=== PATIENT | female | born 1965 | race Caucasian/White ===

== ENCOUNTER 2017-02-09 13:33 | Emergency (ER) | payer OTHER, MEDICAID ==
--- NOTE | 2017-02-09 13:51 | ED Physician Chart ---
Chief Complaint/HPI - Patient Information Date Seen:: 02/09/17 Time Seen:: 13:45 Chief Complaint:: Abdominal pain since about 11 am today. History of Present Illness:: c/o acute onset of L flank pain with radiation to L groin since about 11 am today. Pain is characterized as sharp and constant. No known relieving or aggravating factors. No fever. Pt had transient N/V with vomitus consists of gastric content. No hematemesis. Last BM at about 8 am today, normal in color/ consistency. No hematochezia or melena. Pt noticed blood in urine. No dysuria, urgency, or frequency. Allergies:: Allergies Allergy/AdvReac Type Severity Reaction Status Date / Time No Known Allergies Allergy Verified 02/09/17 13:39 Vitals:: Vital Signs - 8 hr 02/09/17 13:33 Temp 97.4 F HR 67 RR 16 BP 139/70 O2 Sat % 98 Historian:: Patient Family MD/PCP:: Dr. Hercules LMP:: Hysterectomy about 9 y/a. Review:: Nurse's Note Reviewed Review of Systems - Review of Systems General/Constitutional: No fever, No chills, Weight loss (Pt has been on a new diet for wt control), No weakness, No edema, No loss of appetite Skin: No skin lesions, No rash, No bruising Head: No headache, No light-headedness Eyes: No loss of vision, No pain, No diplopia ENT: No earache, No nasal drainage, No sore throat Neck: No neck pain, No swelling, No thyromegaly, No stiffness, No mass noted Cardio Vascular: No chest pain, No palpitations, No edema Pulmonary: No SOB, No cough, No wheezing GI: Nausea, Vomiting, No diarrhea, Pain, No melena, No hematochezia, No constipation, No hematemesis G/U: Dysuria, No frequency, Hematuria Striper Spray Gun: No vaginal discharge, No abnormal vaginal bleed Musculoskeletal: No bone or joint pain, No back pain, No muscle pain Endocrine: No polyuria, No polydipsia Psychiatric: Prior psych history, No depression, No anxiety Hematopoietic: No bruising, No lymphadenopathy Allergic/Immuno: No urticaria, No angioedema Neurological: No syncope, No focal symptoms, No weakness, No paresthesia, No headache, No confusion Past Medical History - Past Medical History Past Medical History: Other (chronic urinary incontinence due to pelvic injury about 29 y/a.) Family History: Diabetes Melitus (mother) Social History: Non Smoker, No Alcohol, Illicit Drug Use (marijuana. Pt has been informed about health risks associated with chronic illicit drug use and has been advised to quit. Pt acknowledges understanding.), , Other ( lives with her significant others.) Employment:: Unemployed. Surgical History: Hysterectomy (about 29 y/a.), Hernia (R inguinal hernia repair about 25 y/a.), other (Urethral diverticulum resection and urinary bladder lift about a year ago.) Psychiatricy History: Other (PTSD) Medication: Reviewed Family Medical History - Family Member Mother History Unknown: Yes Physical Exam - Physical Examination General/Constitutional: Awake, Well-developed, well-nourished, Alert, GCS 15, Non-toxic appearing, Ambulatory Other Gen/Cons comments:: Breathes comfortably, speaks clearly, but is in moderate to severe distress due to L flank pain. Head: Atraumatic Eyes: Lids, conjuctiva normal, PERRL, EOMI Skin: Nl inspection, No rash, No skin lesions, No ecchymosis, Well hydrated, No lymphadenopathy ENMT: External ears, nose nl, Nasal exam nl, Lips, teeth, gums nl, Oropharynx nl Neck: Nontender, Full ROM w/o pain, No nuchal rigidity, No mass, No stridor Respiratory: Nl effort/Exclusion, Clear to Auscultation, No Wheeze/Rhonchi/Rales Cardio Vascular: RRR, No murmur, gallop, rubs GI: No organomegaly, No hernia, Normal BS's, Nondistended, No mass/bruits, No McBurney tenderness Other GI comments:: Obese but soft. Tenderness in L flank. No ecchymosis. No R/G. : No CVA tenderness Extremities: No edema Neuro/Psych: Alert/oriented (oriented x 3.), Judgement/insight normal, Normal gait, No focal deficits Misc: normal gait, Normal back, No paraspinal tenderness Labs/Radiology/EKG Results - Lab Results Results: Laboratory Tests 02/09/17 02/09/17 02/09/17 14:06 14:06 14:06 WBC 10.7 RBC 5.45 H Hgb 15.6 H Hct 47.1 H MCV 86.5 MCH 28.5 MCHC Differential 33.0 RDW 14.0 Plt Count 242 MPV 8.8 Neutrophils % 77.2 Lymphocytes % 18.2 L Monocytes % 3.7 Eosinophils % 0.4 Basophils % 0.5 PT 9.9 INR 0.95 PTT (Actin FS) 26.5 Sodium 137 Potassium 3.8 Chloride 106 Carbon Dioxide 22.3 Anion Gap 12.5 BUN 14 Creatinine 0.5 L Est GFR ( Amer) > 60.0 Est GFR (Non-Af Amer) > 60.0 BUN/Creatinine Ratio 28.0 Glucose 124 H Calcium 10.4 H Total Bilirubin 0.5 AST 16 ALT 21 Alkaline Phosphatase 71 Total Protein 7.1 Albumin 4.5 Globulin 2.6 Albumin/Globulin Ratio 1.7 Urine Source Urine Color Urine Clarity Urine pH Ur Specific [place] Urine Protein Urine Glucose (UA) Urine Ketones Urine Blood Urine Nitrate Urine Bilirubin Urine Urobilinogen Ur Leukocyte Esterase Urine RBC Urine WBC Ur Epithelial Cells Urine Bacteria 02/09/17 15:15 WBC RBC Hgb Hct MCV MCH MCHC Differential RDW Plt Count MPV Neutrophils % Lymphocytes % Monocytes % Eosinophils % Basophils % PT INR PTT (Actin FS) Sodium Potassium Chloride Carbon Dioxide Anion Gap BUN Creatinine Est GFR ( Amer) Est GFR (Non-Af Amer) BUN/Creatinine Ratio Glucose Calcium Total Bilirubin AST ALT Alkaline Phosphatase Total Protein Albumin Globulin Albumin/Globulin Ratio Urine Source CLEAN C Urine Color BROWN Urine Clarity HAZY Urine pH 6.0 Ur Specific [place] 1.030 Urine Protein 100 H Urine Glucose (UA) NEGATIVE Urine Ketones 40 H Urine Blood LARGE H Urine Nitrate NEGATIVE Urine Bilirubin SMALL H Urine Urobilinogen 0.2 Ur Leukocyte Esterase NEGATIVE Urine RBC >100 H Urine WBC 2-5 Ur Epithelial Cells FEW Urine Bacteria MODERATE - Radiology Results Results: Abdominal and pelvic CT without contrast: Mild left hydro, 2 mm left UPJ stone, no free fluid, no diverticulitis. Offical report per Dr. Braeden Santana, radiologist. ED Septic Shock - . Is Septic Shock (SBP<90, OR Lactate>4 mmol\L) present?: No - <6hrs of presentation: Vital Signs: Vital Signs - 8 hr 02/09/17 13:33 Temp 97.4 F HR 67 RR 16 BP 139/70 O2 Sat % 98 Reassessment (Disposition) - Reassessment Reassessment:: [id number] Pt has been repeatedly evaluated. Pt feels much better. Left flank abdominal pain has subsided. CT report just became available. Lab and CT findings have been reviewed with pt. Pt requests to go home now and does not want further observation/management in hospital. Aftercare instructions have been given. Reassessment Condition:: Improved - Diagnosis Diagnosis:: L flank pain due to urolithiasis, stable and improved. Bacteriuria - Aftercare/Follow up Instructions Aftercare/Follow-Up Instructions:: Refer to Discharge Instructions Notes:: Increase oral fluid. Pt has been instructed to strain all urines. If renal stone is isolated, save and bring to lab for chemical analysis. Abdominal pain instructions given. Bedrest today. F/U with PCP Dr. Hercules in one day for recheck with repeat lab studies: CMP, urinalysis, and consideration for repeat abdominal sonogram. Return to ER immediately if condition worsens or if any further questions/problems. Medication Prescribed:: Bactrim DS one tab po q12h for 7 days. D-14 R-0 - Patient Disposition Discharge/Transfer:: Home Time:: 16:00 Condition at Disposition:: Stable, Improved
[2017-02-09 14:16] LABS: % BASOPHILS 0.5 % (0.0-2.0); % EOSINOPHILS 0.4 % (0.0-5.0); % LYMPHOCYTES 18.2 % (20.0-50.0); % MONOCYTES 3.7 % (2.0-10.0); % NEUTROPHILS 77.2 % (40.0-80.0); HEMATOCRIT 47.1 % (35.0-45.0); HEMOGLOBIN 15.6 gm/dL (11.7-15.5); MEAN CELL VOLUME 86.5 fl (81-100); MEAN CORPUSCULAR HEMOGLOBIN 28.5 pg (27.0-31.0); MEAN PLATELET VOLUME 8.8 fl; NEUTROPHILE ABSOLUTE 8.3 Th/cmm (1.8-8.0); PLATELET COUNT 242 Th/cmm (150-400); RED BLOOD COUNT 5.45 Mil/cmm (3.80-5.10); WHITE BLOOD COUNT 10.7 Th/cmm (4.8-10.8)
[2017-02-09 14:27] LABS: INR 0.95 (0.5-1.4); PROTHROMBIN TIME (TEST) 9.9 SECONDS (9.5-11.5)
[2017-02-09 14:31] LABS: ALB/GLOB RATIO 1.7 (1.0-1.8); ALKALINE PHOSPHATASE 71 U/L (34-104); ANION GAP 12.5 (7.0-16.0); BILIRUBIN,TOTAL 0.5 mg/dL (0.3-1.0); BUN - UREA NITROGEN 14 mg/dL (7-25); CALCIUM SERUM 10.4 mg/dL (8.6-10.3); CARBON DIOXIDE 22.3 mEq/L (21.0-31.0); CHLORIDE 106 mEq/L (98-107); CREATININE - SERUM 0.5 mg/dL (0.6-1.2); GLUCOSE 124 mg/dL (70-105); POTASSIUM SERUM 3.8 mEq/L (3.5-5.1); SGOT 16 U/L (13-39); SGPT/ALT 21 U/L (7-52); SODIUM SERUM 137 mEq/L (136-145)
[2017-02-09 15:38] LABS: URINE BILIRUBIN SMALL (NEGATIVE); URINE COLOR BROWN; URINE GLUCOSE (UA) NEGATIVE (NEGATIVE); URINE KETONE 40 mg/dL (NEGATIVE)
[2017-02-09 15:39] LABS: URINE BLOOD LARGE (NEGATIVE); URINE PROTEIN 100 mg/dL (NEGATIVE); URINE UROBILINOGEN 0.2 E.U./dL (0.2 - 1.0)
[2017-02-09 15:40] LABS: URINE BACTERIA MODERATE /hpf (NONE SEEN); URINE EPITHELIAL CELLS FEW /lpf (FEW); URINE RBC >100 /hpf (0-5)
--- NOTE | 2017-02-10 10:57 | Diagnostic Imaging Report ---
CT abdomen and pelvis without intravenous contrast Indication: Left flank pain Comparison: None, Technique: Axial images were obtained from the lung bases to the bilateral proximal femurs without IV contrast. Coronal reconstructions were made. total DLP: [id number], CTDI12.1 FINDINGS: Hypoventilatory atelectatic changes of the lung bases are noted. Assessment of the solid organs is limited due to lack of IV contrast. No evidence of focal hepatic lesions. There may be fatty infiltration of the liver. No radiopaque gallstones. No focal splenic, pancreatic, or adrenal lesions. There is a 2 mm stone within the proximal left ureter causing mild left hydronephrosis. Nonspecific bilateral perinephric inflammatory changes are noted. No evidence of bowel obstruction. No evidence of free fluid or free air. Appendix is not visualized. Mild atherosclerosis is noted. Degenerative changes of the spine and pelvis are noted. Transitional vertebral body anatomy is noted. IMPRESSION: 2 mm stone within the proximal left ureter causing mild left hydronephrosis. Mild nonspecific bilateral perinephric inflammatory changes. No evidence of free fluid. Possible fatty infiltration of the liver. Mild atherosclerotic vascular disease.
== END 2017-02-09 16:20 | disposition home or self-care (01) ==
LOC: ER 13:33
DX: N20.9 Urinary calculus, unspecified (principal); R82.71 Bacteriuria; Z91.040 Latex allergy status; Z90.710 Acquired absence of both cervix and uterus
CPT/HCPCS: 99285; 96374; 96375; 74176; 36415; 85025; 85610; 81001; 80053; J1885; J2405